=== PATIENT | female | born 1945 | race Caucasian/White ===

== ENCOUNTER → 2016-11-29 | Outpatient (CLI) | payer MEDICARE, OTHER ==
[~2016-11-29] MED LIST: BONIVA150 MG PO; EXCEDRIN IB200 MG PO; FOLIC ACID 40400 MCG PO; IRON325 M1 PO; KLONOPIN WAFER0.5 MG PO; METOPROLOL25 MG PO; OSCAL 500 TAB500 MG PO; PRAVASTATIN20 MG PO; PRILOSEC 20MG20 MG PO; THERAPEUTIC VIT1 CAP PO; TRIAMTERENE/HCT1 TAB PO
[2016-11-29 13:43] LABS: BASO % 0.2 % (0.0-2.0); EOS # 0.1 (0.0-0.7); EOS % 0.5 % (0-4.0); GRAN # 6.7 (1.4-6.5); GRAN % 68.5 % (42.2-75.2); HEMATOCRIT 45.9 % (37.0-47.0); LYMPH # 1.9 (1.2-3.4); LYMPH % 19.1 % (20.0-51.0); MEAN CELL VOLUME 91 fl (80.0-100.0); MEAN CORPUSCULAR HEMOGLOBIN 30 pg (27.0-31.0); MEAN CORPUSCULAR HGB CONC 33 g/dl (33.0-37.0); MEAN PLATELET VOLUME 11.5 fl (7.4-10.4); MONO # 1.1 (0.1-0.6); MONO % 11.3 % (1.7-9.3); PLATELET COUNT 129 K/mm3 (130-400); RED BLOOD COUNT 5.07 M/mm3 (4.10-5.30); REDCELL DISTRIBUTION WIDTH-CV 13.2 % (11.5-14.5); WHITE BLOOD COUNT 9.8 K/mm3 (4.8-10.8)
[2016-11-29 13:50] LABS: C-REACTIVE PROTEIN 3.5 mg/dL (0.0-0.9)
[2016-11-29 14:07] LABS: ERYTHROCYTE SEDIMENTATION RATE 18 mm/hr (0-30)
== END ==
LOC: COL.LAB 13:00
PROVIDERS: Physician Assistant
DX: Z01.89 Encounter for other specified special examinations (principal)

== ENCOUNTER → 2017-07-12 | Outpatient (CLI) | payer MEDICARE, OTHER | LOC: MC.RAD 11:37 | DX: Z12.31 Encounter for screening mammogram for malignant neoplasm of breast (principal) ==

== ENCOUNTER → 2018-07-22 | Outpatient (CLI) | payer MEDICARE, OTHER | LOC: MC.RAD 13:20 | DX: Z12.31 Encounter for screening mammogram for malignant neoplasm of breast (principal) ==

== ENCOUNTER → 2018-07-28 | Outpatient (CLI) | payer MEDICARE, OTHER | LOC: COL.RAD 13:11 | DX: R82.90 Unspecified abnormal findings in urine (principal) ==

== ENCOUNTER → 2019-08-15 | Outpatient (CLI) | payer MEDICARE, OTHER | LOC: MC.RAD 12:56 | DX: Z12.31 Encounter for screening mammogram for malignant neoplasm of breast (principal); N64.89 Other specified disorders of breast ==

== ENCOUNTER → 2019-08-17 | Outpatient (CLI) | payer MEDICARE, OTHER | LOC: MC.RAD 12:35 | DX: N64.89 Other specified disorders of breast (principal) | CPT/HCPCS: G0279 ==

== ENCOUNTER → 2020-03-14 | Outpatient (CLI) | payer MEDICARE, OTHER | LOC: COL.RAD 10:30 | DX: M25.872 Other specified joint disorders, left ankle and foot (principal); M89.8X7 Other specified disorders of bone, ankle and foot ==

== ENCOUNTER → 2020-08-27 | Outpatient (CLI) | payer MEDICARE, OTHER | LOC: MC.RAD 13:05 | DX: Z12.31 Encounter for screening mammogram for malignant neoplasm of breast (principal) ==

== ENCOUNTER → 2021-09-02 | Outpatient (CLI) | payer MEDICARE, OTHER | LOC: MC.RAD 10:45 | DX: Z12.31 Encounter for screening mammogram for malignant neoplasm of breast (principal) ==

== ENCOUNTER 2024-05-28 18:14 | Emergency (ER) | payer MEDICARE ==
[~2024-05-28] VITALS: Ht 172.7 cm; Wt 90.9 kg
[~2024-05-28 18:14] MED LIST changes: +ADVIL200 MG PO; -EXCEDRIN IB200 MG PO; -IRON325 M1 PO; +LOPRESSOR 225 MG/TAB PO; +MAXZIDE-25MG TA1 TAB PO; -METOPROLOL25 MG PO; +MULTI VITAMINS1 TAB PO; +NATURAL IRON65 MG PO; +PRAVACHOL 20MG20 MG PO; -PRAVASTATIN20 MG PO; -THERAPEUTIC VIT1 CAP PO; -TRIAMTERENE/HCT1 TAB PO
[2024-05-28] MEDS ORDERED: NS 1,000 ML IV ONE (18:45)
[2024-05-28 18:55] LABS: HEMATOCRIT 45.1 % (37.0-47.0); HEMOGLOBIN 15.1 g/dl (12.5-16.0); MEAN CELL VOLUME 89 fl (80.0-100.0); MEAN CORPUSCULAR HEMOGLOBIN 30 pg (27-31); MEAN CORPUSCULAR HGB CONC 34 g/dl (33.0-37.0); MEAN PLATELET VOLUME 11.4 fl (7.4-10.4); PLATELET COUNT 67 K/mm3 (130-400); RED BLOOD COUNT 5.06 M/mm3 (4.10-5.30); REDCELL DISTRIBUTION WIDTH-CV 13.5 % (11.5-14.5)
[2024-05-28 19:06] LABS: ALBUMIN 3.5 g/dL (3.4-4.8); BILIRUBIN,TOTAL 0.5 mg/dL (0.2-1.2); C-REACTIVE PROTEIN 0.49 mg/dL (0.00-0.50); CALCIUM 8.7 mg/dL (8.4-10.2); CREATININE, serum 0.74 mg/dL (0.57-1.11); POTASSIUM 3.7 mEq/L (3.5-4.5); TOTAL PROTEIN 6.9 g/dl (6.2-8.1)
[2024-05-28 19:12] LABS: TROPONIN-I 0.033 ng/mL (0.00-0.033)
[2024-05-28 19:41] LABS: PH 5.5 (5.0-8.5); URINE APPEARANCE CLEAR (CLEAR/HAZY); URINE BLOOD NEGATIVE (NEGATIVE); URINE COLOR YELLOW (YELLOW); URINE GLUCOSE NEGATIVE (NEGATIVE); URINE KETONE 1+ (NEGATIVE); URINE NITRATE NEGATIVE (NEGATIVE); URINE PROTEIN(semi-quant) 2+ (NEGATIVE)
[2024-05-28 19:46] LABS: COLLECTION METHOD CLEAN CATCH
[2024-05-28 20:11] LABS: LYMPHOCYTE 30 % (20.0-51.0); NEUTROPHILS 62 % (42.0-75.2); PLATELET ESTIMATE DECREASED (NORMAL)
[2024-05-28 21:31] VITALS: BP 143/79; PULSE 90; TEMP 101.6
== END 2024-05-28 21:31 | disposition home or self-care (01) ==
LOC: COL.ER 18:14
PROVIDERS: Emergency Medicine
DX: R53.81 Other malaise (principal); D72.819 Decreased white blood cell count, unspecified; D69.6 Thrombocytopenia, unspecified
CPT/HCPCS: J7030

== ENCOUNTER 2024-05-30 09:51 | Inpatient (IN) | payer MEDICARE ==
[~2024-05-30] VITALS: Ht 172.7 cm; Wt 97.3 kg
[2024-05-30] MEDS ORDERED: NS 1,000 ML IV ONE (10:00)
[2024-05-30 10:18] LABS: HEMATOCRIT 44.3 % (37.0-47.0); HEMOGLOBIN 14.8 g/dl (12.5-16.0); MEAN CELL VOLUME 91 fl (80.0-100.0); MEAN CORPUSCULAR HEMOGLOBIN 30 pg (27-31); MEAN CORPUSCULAR HGB CONC 33 g/dl (33.0-37.0); MEAN PLATELET VOLUME 12.3 fl (7.4-10.4); PLATELET COUNT 64 K/mm3 (130-400); RED BLOOD COUNT 4.89 M/mm3 (4.10-5.30); REDCELL DISTRIBUTION WIDTH-CV 13.7 % (11.5-14.5)
[2024-05-30 10:37] LABS: ALBUMIN 3.4 g/dL (3.4-4.8); BILIRUBIN,TOTAL 0.8 mg/dL (0.2-1.2); C-REACTIVE PROTEIN 0.49 mg/dL (0.00-0.50); CALCIUM 8.7 mg/dL (8.4-10.2); CREATININE, serum 0.71 mg/dL (0.57-1.11); TOTAL PROTEIN 6.7 g/dl (6.2-8.1)
[2024-05-30] MEDS ORDERED: Heparin 5,000 UNITS/ML 1 ML VIAL SQ SCH (10:45)
[2024-05-30] MEDS ORDERED: Acetaminophen 325 MG TAB PO PRN (10:45)
[2024-05-30] MEDS ORDERED: LR 1,000 ML IV SCH (10:45)
[2024-05-30] MEDS ORDERED: Polyethylene Glycol 3350 17 GM PDS PO PRN (10:45)
[2024-05-30] MEDS ORDERED: Docusate Sodium 100 MG CAP PO PRN (10:45)
[2024-05-30 10:58] LABS: BAND 4 % (0-10); HYPOCHROMIA 1+; LYMPHOCYTE 18 % (20.0-51.0); NEUTROPHILS 66 % (42.0-75.2)
[2024-05-30 10:59] LABS: PLATELET ESTIMATE DECREASED (NORMAL)
[2024-05-30 11:35] LABS: COLLECTION METHOD CLEAN CATCH
[2024-05-30 11:44] LABS: URINE APPEARANCE CLEAR (CLEAR/HAZY); URINE BLOOD NEGATIVE (NEGATIVE); URINE COLOR Dark Yellow (YELLOW); URINE GLUCOSE NEGATIVE (NEGATIVE); URINE KETONE 2+ (NEGATIVE); URINE NITRATE NEGATIVE (NEGATIVE); URINE PROTEIN(semi-quant) 3+ (NEGATIVE)
[2024-05-30 12:12] LABS: SQUAMOUS EPITHELIAL 0-2 /hpf (0-10); URINE BACTERIA NONE SEEN /hpf (NONE SEEN); URINE RBC 0-2 /hpf (0-2); URINE WBC 0-2 /hpf (0-2)
[2024-05-30] MEDS ORDERED: K-DUR20 MEQ PO (13:19)
[2024-05-30 13:38] VITALS: BP 122/61; PULSE 71; TEMP 98.8
--- NOTE | 2024-05-30 13:40 | NUR ---
patient alert but unable to tell me date. patient has 3 fluid filled blisters on the back. and some redness on lower back. patient reports weakness and generalized pain rating it at a 6/10. patient on room air. patient reports not having appetite. patient with friend at bedside. call light within reach. bed at lowest position. fall precaution inplaced.
--- NOTE | 2024-05-30 15:00 | NUR ---
SW met with patient to complete initial assessment for discharge planning. Patient's friend at bedside, patient consented to have her remain during assessment. Patient verified that she lives alone in [place], is active and independent. She reports to only use a cane, walker and grab bars at home as needed. Patient sees Dr. Shavonne Skaggs as her PCP and uses [facility] pharmacy. Patient denies having a DPOA completed. Patient lists her friend Nga Jacob ([phone]) and Lala Mathew ([phone]) as emergency contacts. Patient reports her son Samuel just moved from [place] to [place], patient unable to provide his phone number at this time. Discussed need for therapy evaluations due to patient falling at home and unable to get herself up for extended period of time. Patient agreeable. SW will follow up with SNF list and probable need for referrals for rehab. Patient open to this option. Discharge plan: pending therapy evaluations - probable SNF
[2024-05-30 15:55] VITALS: BP 113/65; PULSE 81; TEMP 98.8
[2024-05-30 16:13] VITALS: BP_SYST 113
[2024-05-30 17:00] VITALS: BP_SYST 113
[2024-05-30 20:28] VITALS: BP 120/72; PULSE 81; TEMP 99.6
[2024-05-30 20:30] VITALS: BP_SYST 120
--- NOTE | 2024-05-30 20:30 | NUR ---
UPON SHIFT ASSESSMENT CAMMY WAS AWAKE IN BED AND WAS ASSISSTED WITH GAIT BELT AND WALKER TO RESTROOM. PATIENT VOIDED YELLOW CLEAR URINE. GRAYSON WAS NOTED DURING AMBULATION AND CAMMY'S WOB RECOVERED ONCE IN BED. TREMORS NOTED IN BILATERAL HANDS. PATIENT STATED, " IT STARTED WHEN I GOT THIS VIRUS." CAMMY IS AXO X4 , HOWEVER, STRUGGLES TO FIND THE RIGHT WORDS TO COMMUNICATE-THIS IS ONLY MOMENTARY. DTI NOTED TO LOWER LUMBAR WITH BLISTERS-COVERED WITH MEPIPLEX. LR RUNNING AT 100ML/HR IN RT AC. PATIENT DENIES PAIN AND SOA. VS EXHIBIT LOW GRADE FEVER 99.6-PRN TYLENOL PO 650 MG ADMINISTERED. STATES NO NEEDS AT THIS TIME, CALL LIGHT WITHIN REACH.
[2024-05-31] VITALS (13 sets, daily range): BP systolic 110–137; BP diastolic 56–74; PULSE 66–83; TEMP 98–98.9
--- NOTE | 2024-05-31 01:05 | NUR ---
PATIENT RESTING SUPINE. VS ARE WNL. STATES NO NEEDS AT THIS TIME AND DENIES PAIN. CALL LIGHT WITHIN REACH, BED ALARM ON.
--- NOTE | 2024-05-31 05:04 | NUR ---
THROUGHOUT THE NIGHT, CAMMY AMBULATED TO BATHROOM SEVERAL TIMES WITH GOOD EFFORT USING GAIT BELT AND WALKER-GAIT WAS WEAK AND HESITANT, BUT PROGRESSIVELY GETTING STRONGER.VS ARE WNL AND SHE REMAINS AXO X4, EASY TO AWAKEN AND IS PLEASANT. URINE IS YELLOW AND CLEAR. CALL LIGHT WITHIN REACH, BED ALARM ON.
[2024-05-31 07:11] LABS: HEMATOCRIT 39.3 % (37.0-47.0); HEMOGLOBIN 13.2 g/dl (12.5-16.0); MEAN CELL VOLUME 90 fl (80.0-100.0); MEAN CORPUSCULAR HEMOGLOBIN 30 pg (27-31); MEAN CORPUSCULAR HGB CONC 34 g/dl (33.0-37.0); MEAN PLATELET VOLUME 12.7 fl (7.4-10.4); PLATELET COUNT 71 K/mm3 (130-400); RED BLOOD COUNT 4.38 M/mm3 (4.10-5.30)
[2024-05-31 07:23] LABS: CALCIUM 8.2 mg/dL (8.4-10.2); CREATININE, serum 0.62 mg/dL (0.57-1.11); POTASSIUM 3.4 mEq/L (3.5-4.5)
[2024-05-31] MEDS ORDERED: *Potassium Replacement Protocol MC SCH (07:30)
[2024-05-31] MEDS ORDERED: Potassium Bicarbonate/Citrate 20 MEQ Effervescent TAB PO SCH (07:30)
--- NOTE | 2024-05-31 08:00 | NUR ---
stephenie/ notified of patient low wbc
[2024-05-31 08:02] LABS: BAND 2 % (0-10); LYMPHOCYTE 44 % (20.0-51.0); NEUTROPHILS 47 % (42.0-75.2)
[2024-05-31 08:03] LABS: PLATELET ESTIMATE DECREASED (NORMAL)
--- NOTE | 2024-05-31 10:34 | NUR ---
Sales Service Rep met with patient to follow up on post acute rehab options. Patient stated she is unsure what her preferences would be but was open to having referrals sent to all the local facilities including [facility], [facility], [facility], and [facility]. SW also reviewed OT note which recommeded [facility] so SW also gave referral to ANDREW Irby clinical liason. Discharge Plan: Rehab
--- NOTE | 2024-05-31 10:37 | NUR ---
Initial visit; Patient thanked Emergency Registrar for looking in on her and offering prayer and God's blessings. Patient was pleased when Emergency Registrar mentioned that she would like to check on Emelina tomorrow.
[2024-05-31] MEDS ORDERED: Lidocaine 4% Topical Patch TP SCH (11:00)
--- NOTE | 2024-05-31 13:39 | NUR ---
Tabitha at [facility] left a message for [facility] that they can accept patient for a skilled stay.
--- NOTE | 2024-05-31 14:05 | NUR ---
SW received call from a friend of patient stating she is helping patient "figure out what is going to happen." The name she provided is not listed on patient's chart. SW met with patient in room, friend at bedside. Patient agreeable to speaking in front of friend. Patient voices feeling "fuzzy" and asked that SW contact patient's son Samuel in [place] ([phone]). SW explained the multiple SNF/SB referrals that have been sent for rehab and explained the referral process. Patient agreeable. Discharge plan: SNF
--- NOTE | 2024-05-31 21:14 | NUR ---
pt lying in bed, alert and oriented x4. denies chest pain and shortness of breath, reports pain in lower back, tylenol guven per request, mepilex dressing changed on lower back for multiple small blisters with deep tissue injury. pt has no further needs, questions or concerns at this time. care passed to KAYLA Powell.
--- NOTE | 2024-05-31 23:00 | NUR ---
UPON SHIFT ASSESSMENT, CAMMY WAS AWAKE IN BED AND AXO X4. SHE STILL EXHIBITS A SLOW RESPONSE TO QUESTIONS AND STRUGGLES TO RECALL CERTAIN WORDS. TREMORS IN HANDS STILL PROFOUND AND PATIENT NOTED TO HAVE DIFFICULTY TAKING PILLS. HOSPITALIST NOTIFIED. VS ARE WNL. RT AC POSSIBLY INFILTERATED-MILD SWELLING-WILL MONITOR. CAMMY CONTINUES WITH IVF LR 100ML/HR AND URINATES FREQUENTLY-YELLOW AND CLEAR. GAIT IS STILL WEAK BUT GOOD EFFORT IS APPLIED.BED ALARM RECEIVING OPERATOR LIGHT WITHIN REACH.
[2024-06-01] VITALS (13 sets, daily range): BP systolic 120–137; BP diastolic 67–78; PULSE 62–76; TEMP 97.9–99.8
--- NOTE | 2024-06-01 00:20 | NUR ---
RADHA RECIEVED FOR SPEECH CONSULT. PATIENT OBSERVED TO HAVE DIFFICULTY SWALLOWING PILLS. NO ISSUES WITH LIQUIDS NOTED.
--- NOTE | 2024-06-01 01:00 | NUR ---
PATIENT FORGOT TO PULL CALL LIGHT IN RESTROOM AND AMBULATED BACK TO BED UNASSISSTED. WAS UNABLE TO PUSH IV POLE AND RIPPED OUT LT WRIST IV. IVF RESTARTED IN PRE EXISTING RT AC.
[2024-06-01 06:31] LABS: HEMATOCRIT 37.6 % (37.0-47.0); HEMOGLOBIN 12.9 g/dl (12.5-16.0); MEAN CELL VOLUME 88 fl (80.0-100.0); MEAN CORPUSCULAR HEMOGLOBIN 30 pg (27-31); MEAN CORPUSCULAR HGB CONC 34 g/dl (33.0-37.0); MEAN PLATELET VOLUME 12.2 fl (7.4-10.4); PLATELET COUNT 70 K/mm3 (130-400); RED BLOOD COUNT 4.26 M/mm3 (4.10-5.30); REDCELL DISTRIBUTION WIDTH-CV 13.8 % (11.5-14.5)
--- NOTE | 2024-06-01 07:40 | NUR ---
PATIENT ALERT BUT UNABLE TO REMEMBER BIRTHDATE. PATIENT ON ROOM AIR, PATIENT ASSISTED TO BATHROOM THIS MORNING. PATIENT DEEP TISSUE INJURY BLISTER POPPED. NEW DRESSING WAS PLACED. PATIENT ASSESTED TO RECLINER. CHAIR ALARM ON. BREAKFAST PLACED INFRONT OF PATIENT. DENIES PAIN AT THIS TIME JUST SOME DISCOMFORT TO LEGS. CALL LIGHT WITHIN REACH.
[2024-06-01 07:43] LABS: BAND 1 % (0-10); LYMPHOCYTE 59 % (20.0-51.0); NEUTROPHILS 29 % (42.0-75.2); PLATELET ESTIMATE DECREASED (NORMAL)
[2024-06-01 08:09] LABS: ALBUMIN 2.8 g/dL (3.4-4.8); BILIRUBIN,TOTAL 0.7 mg/dL (0.2-1.2); CALCIUM 7.9 mg/dL (8.4-10.2); CREATININE, serum 0.56 mg/dL (0.57-1.11); POTASSIUM 3.7 mEq/L (3.5-4.5); TOTAL PROTEIN 5.4 g/dl (6.2-8.1)
--- NOTE | 2024-06-01 08:30 | NUR ---
THIS STUDENT NURSE PERFORMED SHIFT ASSESSMENT. PATIENT ALERT TO NAME, PLACE, AND SITUATION. PATIENT HAS DIFFICULTY WITH OTHERS SPEAKING TOO QUICKLY AND REQUIRES OTHERS TO SPEAK SLOWLY TO BE ABLE TO RESPOND APPROPRIATELY. PATEINT HAS SOME DIFFICULTY FINDING WORDS, ESPECIALLY WHEN PATINET IS FEELING OVERWHELMED. PATIET CONTINUES TO HAVE MILD TREMORS TO BILATERAL UPPER EXTREMTIES. PATIENT EXHIBITS ANXITY WHEN TRANSFERING FROM A STNDING TO SITTING POSTION ESPECIALLY IN THE BATHROOM. MILD PAIN ON CONTACT TO RIGHT LOWER EXTREMITY WITHOUT WARMTH OR REDNESS.
[2024-06-01] MEDS ORDERED: Potassium Bicarbonate/Citrate 20 MEQ Effervescent TAB PO SCH (09:00)
[2024-06-01] MEDS ORDERED: Gadoterate 20 ML VIAL IV ONE (11:00)
--- NOTE | 2024-06-01 13:34 | NUR ---
PATIENT IN BED RELAXING AND VISITING WITH CHATA. PATIENT WAS C/O THAT THE SMELL OF FOOD WAS MAKING HER NAUSEOUS. WILL INFORM PRIMARY NURSE. AGGREEABLE TO EATING SOME CRACKERS AND DRINKING HER SUPPLEMENT. CALL LIGHT IN REACH BED IN LOWEST POTION WITH HOB ELEVATED.
--- NOTE | 2024-06-01 15:56 | NUR ---
Browning Processor met with patient and her friend, Jamila (ph#[phone]) to update on rehab referrals. BHUMIKA advised [facility], [facility], and [facility] have all accepted. [facility] and [facility] are still reviewing. BHUMIKA also discussed DPOA-HC with patient and she stated she will consider this and wants time to think about who she will appoint. BHUMIKA advised [facility] will require one if she chooses them. Later on, Melania advised they are full until next week. BHUMIKA Jordan faxed updates to the above facilities.
--- NOTE | 2024-06-01 19:50 | NUR ---
Patient up to the bathroom returning to bed. Mepilex on mib back changed. Denies any pain at this time. Needs met. Assessment complete. IV in right AC flushes easily without complications. Call light and personal items in reach. Bed in low position and bed alarm on.
[2024-06-02] VITALS (13 sets, daily range): BP systolic 130–155; BP diastolic 59–83; PULSE 65–77; TEMP 97.6–98.3
[2024-06-02 07:02] LABS: HEMOGLOBIN 12.7 g/dl (12.5-16.0); MEAN CELL VOLUME 88 fl (80.0-100.0); MEAN CORPUSCULAR HEMOGLOBIN 30 pg (27-31); MEAN CORPUSCULAR HGB CONC 34 g/dl (33.0-37.0); MEAN PLATELET VOLUME 11.6 fl (7.4-10.4); PLATELET COUNT 73 K/mm3 (130-400); RED BLOOD COUNT 4.19 M/mm3 (4.10-5.30); REDCELL DISTRIBUTION WIDTH-CV 13.5 % (11.5-14.5)
[2024-06-02 07:19] LABS: ALBUMIN 2.8 g/dL (3.4-4.8); BILIRUBIN,TOTAL 0.9 mg/dL (0.2-1.2); CALCIUM 8.3 mg/dL (8.4-10.2); CREATININE, serum 0.55 mg/dL (0.57-1.11); POTASSIUM 3.4 mEq/L (3.5-4.5); TOTAL PROTEIN 5.6 g/dl (6.2-8.1)
--- NOTE | 2024-06-02 07:38 | NUR ---
critical lab called wbc 1.8. contacted Dr. Davis no new orders at this time.
[2024-06-02 07:49] LABS: BAND 2 % (0-10); NEUTROPHILS 32 % (42.0-75.2); PLATELET ESTIMATE DECREASED (NORMAL)
[2024-06-02 07:53] LABS: LYMPHOCYTE 40 % (20.0-51.0)
[2024-06-02] MEDS ORDERED: Potassium Bicarbonate/Citrate 20 MEQ Effervescent TAB PO SCH ×2 (08:00→23:00)
[2024-06-02] MEDS ORDERED: *Potassium Replacement Protocol MC SCH (08:00)
--- NOTE | 2024-06-02 08:35 | NUR ---
PATIENT SITTING IN RECLINER AT THIS NURSES ARRIVAL. PATINET IS ALERT AND ABLE TO FOLLOW DIRECTIONS. PATIENT CONTINUES TO HAVE INTERMITENET EPISODES OF AN UNPRODCTIVE COUGH. PATIENT HAS BEEN TOILETED AND CONITNUES TO REQUIRE ONE ASSIST WITH GAITBELT AND A WALKER. PATINET C/O SOME PAIN WHEN TRANSFERING FROM STANDING TO SITTING POSITION, WELL DISPLAYES MILD ANIXETY WHILE TRANSFERING. RES C/O HAVING RESTLESS SLEEP AT NOC. C/O SLIGHT DISCOMOFORT TO LOWER EXTREMITIES ON PALPATION.
[2024-06-02] MEDS ORDERED: Ondansetron 4 MG/2 ML VIAL IV PRN (09:15)
[2024-06-02] MEDS ORDERED: Multivitamin TAB PO SCH (10:43)
[2024-06-02] MEDS ORDERED: Thiamine 100 MG TAB PO SCH (10:43)
--- NOTE | 2024-06-02 10:53 | NUR ---
SHIFT ASSESSMENT COMPLETE. PATIENT UP IN RECLINER EATING BREAKFAST. DRESSING ON LOWER BACK ROLLING UP, STUDENT NURSE COMPLETEING THE DRESSING CHANGE. ALL MORNING MEDS GIVEN ORDERED BY STUDENT NURSE. PATIENT HAS NO REQUEST AT THIS TIME. CALL LIGHT IN REACH
--- NOTE | 2024-06-02 13:44 | NUR ---
PATIENT IS RESTING IN BED AT THIS TIME. PATIENT IS VISITNG WITH FAMILY NOW. PATIENT HAS HAS MINIMAL IMPROVEMENT ON EATING FOR LUNCH. PATIENT CONTINUES TO HAVE DIFFICULTY FROM STANDING TO SITTING POSTION WHEN TOILETING. RISER PLACED TO ASSIST PATIENT IN MINIMIZING DISTANCE FROM STANDING TO SITTING. HOB ELEVATED, BED IN LOWEST POTITION, AND CALL LIGHT IS IN REACH.
--- NOTE | 2024-06-02 15:49 | NUR ---
Racing Mechanic met with patient and her son, Samuel to discuss discharge planning and DPOA-HC. Patient stated she wanted to designate her son, Samuel and friend, Jamila. BHUMIKA assisted patient in completing the form then BHUMIKA and certified nursing assistant instructor, Mario provided witness signature. BHUMIKA placed copy in chart then provided original and copies to patient. BHUMIKA reviewed accepting facilities with patient and Samuel ([facility], [facility], [facility]) and patient selected [facility]. BHUMIKA De La Cruz sent clinical updates to [place] at [facility]. BHUMIKA also provided copy of DPOA-HC to [place]. Discharge Plan: [facility] SNF
[2024-06-02] MEDS ORDERED: cefTRIAXone 1 G in Water For Injection,Sterile 10 ML IV SCH (18:30)
--- NOTE | 2024-06-02 20:03 | NUR ---
SHIFT ASSESSMENT COMPLETED AT THIS TIME. PT RESTING IN BED. PT DENIES PAIN NAUSEA AND SOB AT THIS TIME. EVENING MEDICATIONS ADMINISTERED WITHOUT COMPLICATIONS. PCT REPORTED PT WAS TEARFUL BUT PT APPEARS COMFORTABLE AND RESTING UPON ENTRANCE. FALL PRECAUTIONS IN PLACE. PT HAS NO CONCERNS OR NEEDS AT THIS TIME. CALL LIGHT WITHIN REACH.
[2024-06-03] VITALS (7 sets, daily range): BP systolic 119–155; BP diastolic 67–75; PULSE 62–69; TEMP 7.7
[2024-06-03 06:52] LABS: HEMOGLOBIN 12.5 g/dl (12.5-16.0); MEAN CELL VOLUME 89 fl (80.0-100.0); MEAN CORPUSCULAR HEMOGLOBIN 30 pg (27-31); MEAN CORPUSCULAR HGB CONC 34 g/dl (33.0-37.0); MEAN PLATELET VOLUME 12.3 fl (7.4-10.4); PLATELET COUNT 77 K/mm3 (130-400); RED BLOOD COUNT 4.13 M/mm3 (4.10-5.30); REDCELL DISTRIBUTION WIDTH-CV 13.6 % (11.5-14.5)
[2024-06-03 07:07] LABS: HEMATOCRIT 36.8 % (37.0-47.0)
[2024-06-03 07:13] LABS: CALCIUM 8.3 mg/dL (8.4-10.2); CREATININE, serum 0.54 mg/dL (0.57-1.11); POTASSIUM 3.4 mEq/L (3.5-4.5)
--- NOTE | 2024-06-03 08:00 | NUR ---
Patient resting in the chair, alert and oriented x 2, VSS. Denies any pain or discomfort. Assessment complted, meds given. No further needs at this time. Call light within reach.
[2024-06-03] MEDS ORDERED: Potassium Bicarbonate/Citrate 20 MEQ Effervescent TAB PO SCH (08:30)
[2024-06-03 09:02] LABS: BAND 2 % (0-10); LYMPHOCYTE 40 % (20.0-51.0); OVALOCYTES 1+; PLATELET ESTIMATE DECREASED (NORMAL)
[2024-06-03 09:18] LABS: NEUTROPHILS 28 % (42.0-75.2)
--- NOTE | 2024-06-03 11:33 | NUR ---
Per attending, patient stable for discharge either today or tomorrow. SW met with patient to review Medicare IM form. Patient reports still feeling a "little fuzzy" and asked SW to call her son Samuel to discuss IM form. SW called patient's son Samuel ([phone]) to update on discharge plan for today or tomorrow pending lab results. Discussed Medicare IM form. Samuel agreeable that patient is stable for discharge and agreed for SW to sign form on his behalf. Original on chart and copy to patient. Discharge plan: SNF - [facility]
[2024-06-03 11:43] LABS: BILIRUBIN,TOTAL 0.7 mg/dL (0.2-1.2)
[2024-06-03] MEDS ORDERED: NATURE'S BLEND100 M2 PO (12:32)
[2024-06-03] MEDS ORDERED: DOXYCYCLINE HY100 MG PO (12:35)
--- NOTE | 2024-06-03 13:02 | NUR ---
BHUMIKA notified by attending that patient is cleared for discharge today. Discharge orders and clinical updates sent secure email to [facility]. BHUMIKA called Ming at [facility] to coordinate transport time. Awaiting call back. Discharge plan: [facility]
--- NOTE | 2024-06-03 14:22 | NUR ---
Pt to be transfered to [facility] at 1500. Telemetry and IV discontinued.
[2024-06-06 10:53] LABS: LYME DISEASE ANTIBODIES Negative (Negative)
[2024-06-07 05:38] LABS: SPOTTED FEVER IGG ANTIBODY <1:64 (())
[2024-06-07 14:12] LABS: E.CHAFFEENSIS IGG AB Negative (())
== END 2024-06-03 15:45 | DRG 558 ==
LOC: COL.ER 09:51 → MEDICAL 10:48
PROVIDERS: Emergency Medicine; Internal Medicine; Internal Medicine Infectious Disease; Physician Assistant; ADMIT Internal Medicine
DX: M62.82 Rhabdomyolysis (principal); A93.8 Other specified arthropod-borne viral fevers; E86.0 Dehydration; R13.10 Dysphagia, unspecified; D72.819 Decreased white blood cell count, unspecified; D69.6 Thrombocytopenia, unspecified; E87.6 Hypokalemia; I10 Essential (primary) hypertension; M54.9 Dorsalgia, unspecified; R63.0 Anorexia; R53.83 Other fatigue; E78.5 Hyperlipidemia, unspecified; F41.9 Anxiety disorder, unspecified
CPT/HCPCS: A9575; J0696; J1644; J7030; J7120; Q3014